=== PATIENT | female | born 1975 | race African-American/Black ===

== ENCOUNTER 2017-04-29 19:26 | Emergency (ER) | payer MEDICAID ==
[~2017-04-29] VITALS: Ht 152.4 cm; Wt 54.4 kg
[2017-04-29] MEDS ORDERED: UNOBMED (19:48)
[2017-04-29 19:52] VITALS: BP 113/71
--- NOTE | 2017-04-29 19:58 | Emergency Room Report ---
History of Present Illness General Chief Complaint: Skin Rash/Abscess Source: Patient Present Illness HPI 41 YO Female presents to the ED c/o pain, swelling, and erythema of Right hand since this am. multiple itchy insect bites to LE's, hand and face x 3 days, pt. reports hx of intermittent swollen itchy lesions x 1 year that her pmd rx'd hydrocortisone 2.5% cream for, however, pt. states she has never had increased temperature to palpation and as painful as the dorsum of her hand is today. patient denies past medical history otherwise she states she had workup for lupus and autoimmune dz which was unremarkable. denies N/V/F/C, denies IV drug use or hx of immune compromise. Denies new medications or body washes or creams. Denies swelling of the lips, tongue , throat or airway. Denies wheezing , or shortness of breath. Denies recent travel, recent illness or ill contacts. denies blisters, oral lesions, or sloughing of the skin. Denies CP, Palpitations, LOC, AMS, dizziness, Changes in Vision, Sensation, paresthesias, or a sudden severe headache. Allergies: Coded Allergies: No Known Allergies (Unverified , 04/29/17) Patient History Past Medical History: see triage record Past Surgical History: none Pertinent Family History: none Last Menstrual Period: 2 weeks ago Now: No Immunizations: UTD Reviewed Nursing Documentation: PMH: Agreed, PSxH: Agreed Nursing Documentation-PMH Past Medical History: No Stated History Review of Systems All Other Systems: negative except mentioned in HPI Physical Exam Vital Signs Date Time Temp Pulse Resp B/P (MAP) Pulse Ox O2 Delivery O2 Flow Rate FiO2 04/29/17 19:40 98.4 70 16 113/71 98 Room Air Sp02 EP Interpretation: reviewed, normal General Appearance: no apparent distress, alert, GCS 15, non-toxic Head: normocephalic, atraumatic Eyes: bilateral eye normal inspection, bilateral eye PERRL ENT: hearing grossly normal, normal pharynx, no angioedema, normal voice, other - no swelling of the lips or tongue Neck: full range of motion Respiratory: lungs clear, normal breath sounds, no wheezing, speaking full sentences Cardiovascular #1: regular rate, rhythm, normal capillary refill Musculoskeletal: back normal, gait/station normal, normal range of motion, tender - ttp to the dorsum of the right hand, erythema, swelling and increased temperature to palpation noted, pt. is NVI Neurologic: alert, oriented x3, responsive, motor strength/tone normal, sensory intact, speech normal Psychiatric: judgement/insight normal, memory normal, mood/affect normal Skin: normal color, warm/dry, well hydrated, other - multiple insect bites on the bilateral calves, UE, posterior neck and chin, lesion on the dorsum of the right hand with secondary cellulitis of the right hand- erythema, swelling, mild streaking up to the mid forearm, non-blanching. Medical Decision Making PA Attestation Dr. De La Paz is my supervising Physician whom patient management has been discussed with. Diagnostic Impression: Primary Impression: Cellulitis Qualified Codes: L03.90 - Cellulitis, unspecified Additional Impression: Insect bites Qualified Codes: W57.XXXA - Bitten or stung by nonvenomous insect and other nonvenomous arthropods, initial encounter ER Course 41 YO Female presents to the ED c/o pain, swelling, and erythema of Right hand since this am. multiple itchy insect bites to LE's, hand and face x 3 days, pt. reports hx of intermittent swollen itchy lesions x 1 year that her pmd rx'd hydrocortisone 2.5% cream for, however, pt. states she has never had increased temperature to palpation and as painful as the dorsum of her hand is today. patient denies past medical history otherwise she states she had workup for lupus and autoimmune dz which was unremarkable. denies N/V/F/C, denies IV drug use or hx of immune compromise. Denies new medications or body washes or creams. Denies swelling of the lips, tongue , throat or airway. Denies wheezing , or shortness of breath. Denies recent travel, recent illness or ill contacts. denies blisters, oral lesions, or sloughing of the skin. Denies CP, Palpitations, LOC, AMS, dizziness, Changes in Vision, Sensation, paresthesias, or a sudden severe headache. Ddx considered but are not limited to cellulitis, fracture, d/L, gout Vital signs: are WNL, pt. is afebrile H&PE are most consistent with multiple insect bites with secondary cellulitis of the right hand. ORDERS: none required at this time, the diagnosis is clinical ED INTERVENTIONS: - Motrin PO -Bactrim DS PO - Keflex PO I Gave pt. strict ED Return precautions, as mild streaking to the mid forearm noted, pt. is young and healthy otherwise I believe close outpatient treatment is most appropriate for this pt. d/w pt. to return immediately to ED with worsening of current symptoms, progression of erythema and swelling, or new symptoms. otherwise follow up closely with PMD. DISCHARGE: At this time pt. is stable for d/c to home. Will provide printed patient care instructions, and any necessary prescriptions. Care plan and follow up instructions have been discussed with the patient prior to discharge. Last Vital Signs Date Time Temp Pulse Resp B/P (MAP) Pulse Ox O2 Delivery O2 Flow Rate FiO2 04/29/17 19:40 98.4 70 16 113/71 98 Room Air Disposition: HOME, SELF-CARE Condition: Stable Scripts Diphenhydramine Hcl (BENADRYL ALLERGY) 25 Mg Tablet 25 MG PO Q6HR, #20 TAB Prov: Melia Mcmanus.A. 04/29/17 Ibuprofen* (MOTRIN*) 600 Mg Tablet 600 MG ORAL THREE TIMES A DAY, #30 TAB 0 Refills Prov: Melia Mcmanus P.A. 04/29/17 Cephalexin* (KEFLEX*) 500 Mg Capsule 500 MG ORAL EVERY 12 HOURS for 7 Days, #14 CAP 0 Refills Prov: Melia Mcmanus.A. 04/29/17 Trimethoprim/Sulfamethoxazole 160/800* (BACTRIM DS TABLET*) 1 Each Tablet 1 TAB ORAL TWICE A DAY for 7 Days, #14 TAB Prov: Melia Mcmanus 04/29/17 Departure Forms: Return to Work Return to Work Date: May 03, 2017 Work Restrictions: None Return to Full Activity: May 03, 2017 Patient Instructions: Cellulitis, Insect Bite, [id number] Additional Instructions: Take medications as directed. Follow up with a Primary Care Provider in 3 days, even if your symptoms have resolved. --Please review list of primary care clinics, if you do not already have a primary care provider Return sooner to ED if new symptoms occur, or current symptoms become worse. - Please note that this Emergency Department Report was dictated using [employer] assembler operator technology software, occasionally this can lead to erroneous entry secondary to interpretation by the dictation equipment. Melia Mcmanus Apr 29, 2017 19:58
[2017-04-29] MEDS ORDERED: Bactrim DS (160mg/800mg) tab ORAL ONE (20:15)
[2017-04-29] MEDS ORDERED: Cephalexin 500mg cap ORAL ONE (20:15)
[2017-04-29] MEDS ORDERED: BENADRYL ALLERG25 M1 PO (20:26)
[2017-04-29] MEDS ORDERED: IBUPROFEN600 MG ORAL (20:26)
[2017-04-29] MEDS ORDERED: BACTRIM DS TAB1 EAC1 ORAL (20:26)
[2017-04-29] MEDS ORDERED: CEPHALEXIN500 MG ORAL (20:26)
[2017-04-29 20:32] VITALS: BP 113/71
== END 2017-04-29 20:32 | disposition home or self-care (01) ==
LOC: EMR 19:56
DX: L03.113 Cellulitis of right upper limb (principal); S80.862A Insect bite (nonvenomous), left lower leg, initial encounter; S80.861A Insect bite (nonvenomous), right lower leg, initial encounter; S60.561A Insect bite (nonvenomous) of right hand, initial encounter; S10.96XA Insect bite of unspecified part of neck, initial encounter; S00.86XA Insect bite (nonvenomous) of other part of head, initial encounter; W57.XXXA Bitten or stung by nonvenomous insect and other nonvenomous arthropods, initial encounter; Y92.89 Other specified places as the place of occurrence of the external cause
CPT/HCPCS: 99284

== ENCOUNTER 2017-05-09 12:34 | Emergency (ER) | payer MEDICAID ==
[~2017-05-09] VITALS: Ht 152.4 cm; Wt 56.7 kg
[~2017-05-09 12:34] MED LIST: BACTRIM DS TAB1 EAC1 ORAL; BENADRYL ALLERG25 M1 PO; CEPHALEXIN500 MG ORAL; IBUPROFEN600 MG ORAL; UNOBMED
[2017-05-09] MEDS ORDERED: BACTRIM DS TAB1 EAC1 ORAL (13:10)
[2017-05-09] MEDS ORDERED: CEPHALEXIN500 MG ORAL (13:10)
[2017-05-09 13:15] VITALS: BP 104/49
[2017-05-09] MEDS ORDERED: Bactrim DS (160mg/800mg) tab ORAL ONE (13:15)
[2017-05-09] MEDS ORDERED: Cephalexin 500mg cap ORAL ONE (13:15)
--- NOTE | 2017-05-09 21:24 | Emergency Room Report ---
History of Present Illness General Chief Complaint: General Complaint Source: Patient Present Illness HPI The patient is a 41-year-old female presenting for possible skin infection. She states that she was seen in this emergency department one week prior and diagnosed with cellulitis. She was given prescription for Bactrim DS and states that he was working. She finished prescription yesterday and she noticed redness and pain in the same areas today. Pain is a 9/10 dull ache and worse with touch. She noticed the redness to the left arm and left leg. She denies any other symptoms including N, V, F, chills Allergies: Coded Allergies: No Known Allergies (Unverified , 04/29/17) Patient History Past Medical History: see triage record Pertinent Family History: none Last Menstrual Period: 04/23/17 Reviewed Nursing Documentation: PMH: Agreed, PSxH: Agreed Nursing Documentation-PMH Past Medical History: No Stated History Review of Systems All Other Systems: negative except mentioned in HPI Physical Exam Vital Signs Date Time Temp Pulse Resp B/P (MAP) Pulse Ox O2 Delivery O2 Flow Rate FiO2 05/09/17 12:49 99.0 80 17 104/49 98 Room Air Sp02 EP Interpretation: reviewed, normal General Appearance: no apparent distress, alert, GCS 15, non-toxic Head: normocephalic, atraumatic Eyes: bilateral eye normal inspection, bilateral eye PERRL Musculoskeletal: back normal, gait/station normal, normal range of motion Neurologic: alert, oriented x3, responsive, motor strength/tone normal, sensory intact, speech normal Psychiatric: judgement/insight normal, memory normal, mood/affect normal, no suicidal/homicidal ideation Skin: rash - Erythema to L arm tricep region and L leg anterior thigh. Hot to the touch. Tender. No fluctuance. No streaking Lymphatic: no adenopathy Medical Decision Making PA Attestation is my supervising physician. Patient management was discussed with my supervising physician Diagnostic Impression: Primary Impression: Cellulitis Qualified Codes: L03.90 - Cellulitis, unspecified ER Course The patient is a 41-year-old female presenting for possible skin infection. DDx considered but not limited to: cellulitis, abscess, lymphangitis, among others PE: afebrile. NAD Signs consistent with cellulitis of L arm and leg. No streaking. The patient to be discharged home with prescription for Keflex and Bactrim DS. She will follow up with primary doctor. She is given indications to return including increased redness, streaks, or fever Last Vital Signs Date Time Temp Pulse Resp B/P (MAP) Pulse Ox O2 Delivery O2 Flow Rate FiO2 05/09/17 13:15 99.0 17 104/49 98 Room Air 05/09/17 12:49 80 Status: improved Disposition: HOME, SELF-CARE Condition: Improved Scripts Trimethoprim/Sulfamethoxazole 160/800* (BACTRIM DS TABLET*) 1 Each Tablet 1 TAB ORAL TWICE A DAY, #20 TAB Prov: SHARAN DIAZ 05/09/17 Cephalexin* (KEFLEX*) 500 Mg Capsule 500 MG ORAL EVERY 12 HOURS, #20 CAP 0 Refills Prov: SHARAN DIAZ.A. 05/09/17 Referrals: NOT CHOSEN IPA/,REFERRING (PCP) Patient Instructions: Cellulitis Additional Instructions: I discussed my findings with the patient. All questions and concerns have been answered. Treatment and medication compliance have been addressed. I advised the patient that they need to follow up with PMD in 3-5 days. Return to ED if symptoms worsen, new symptoms arise such as fever or chills, or if needed for any reason. Return if symptoms worsen. Patient verbalized understanding of discharge instructions. SHARAN DIAZ May 09, 2017 21:24
== END 2017-05-09 13:15 | disposition home or self-care (01) ==
LOC: EMR 13:09
DX: L03.114 Cellulitis of left upper limb (principal); L03.116 Cellulitis of left lower limb
CPT/HCPCS: 99284

== ENCOUNTER 2017-06-02 12:18 | Emergency (ER) | payer MEDICAID ==
[~2017-06-02] VITALS: Ht 152.4 cm; Wt 54.4 kg
[2017-06-02] MEDS ORDERED: HYDROCORTISONE-30 GM TOPIC (12:45)
[2017-06-02] MEDS ORDERED: BENADRYL ALLERG25 M1 PO (12:45)
--- NOTE | 2017-06-02 12:52 | Emergency Room Report ---
History of Present Illness General Chief Complaint: Skin Rash/Abscess Source: Patient Present Illness HPI 41-year-old female no significant past medical history presenting with a rash to bilateral legs. Patient states that she has been intermittently getting this rash once every 3-4 months. It is itchy and slightly painful. States that one time she had a rash on her right arm and it became infected for chest take antibiotics. Currently denying any purulent drainage Allergies: Coded Allergies: No Known Allergies (Unverified , 04/29/17) Patient History Past Medical History: see triage record Past Surgical History: none Pertinent Family History: none Last Menstrual Period: 06/02/17 Now: No : 2 Para: 3 Reviewed Nursing Documentation: PMH: Agreed, PSxH: Agreed Nursing Documentation-PMH Past Medical History: No Stated History Review of Systems All Other Systems: negative except mentioned in HPI Physical Exam Vital Signs Date Time Temp Pulse Resp B/P (MAP) Pulse Ox O2 Delivery O2 Flow Rate FiO2 06/02/17 12:25 97.9 90 16 109/68 98 Room Air Sp02 EP Interpretation: reviewed, normal General Appearance: normal inspection, well appearing, no apparent distress, alert, GCS 15, non-toxic Head: normocephalic, atraumatic Eyes: bilateral eye normal inspection, bilateral eye PERRL, bilateral eye EOMI ENT: normal ENT inspection, normal pharynx, normal voice, moist mucus membranes Neck: normal inspection, full range of motion, supple Respiratory: normal inspection, lungs clear, normal breath sounds, no respiratory distress, no retraction, no wheezing, speaking full sentences, chest symmetrical Cardiovascular #1: normal inspection, regular rate, rhythm, no edema, normal capillary refill Cardiovascular #2: 2+ radial (R), 2+ radial (L) Gastrointestinal: normal inspection, non tender, soft, non-distended, no guarding Musculoskeletal: normal inspection, back normal, normal range of motion, non- tender Neurologic: normal inspection, alert, oriented x3, responsive, motor strength/ tone normal, sensory intact, normal gait, speech normal Psychiatric: normal inspection, judgement/insight normal, memory normal Skin: no rash, warm/dry, well hydrated, normal turgor, other - 3 2 x 2 centimeter insect bites right lower extremity one on the left lower extremity. Slightly tender. No fluctuance. No purulent drainage. No overlying cellulitis Medical Decision Making Diagnostic Impression: Primary Impression: Insect bites ER Course 41-year-old female with a rash to legs DDX: Appears to be insect bites, not infected Plan: Benadryl and hydrocortisone cream Disposition: Patient is to be discharged to home on Benadryl and hydrocortisone cream. Strict precautions discussed with patients on when to return to the ED including fevers, chills, rapid spread of rash, persistent rash, extreme pain to extremity, which may indicate severe illness. Patient verbalizes understanding. Patient is instructed to follow up with primary care doctor OR come back to the ED in 48 hours for wound check. Patient agrees with plan. Please note that this Emergency Department Report was dictated using [employer] expert technology software, occasionally this can lead to erroneous entry secondary to interpretation by the dictation equipment. Last Vital Signs Date Time Temp Pulse Resp B/P (MAP) Pulse Ox O2 Delivery O2 Flow Rate FiO2 06/02/17 12:25 97.9 90 16 109/68 98 Room Air Disposition: HOME, SELF-CARE Condition: Stable Scripts Diphenhydramine Hcl (BENADRYL ALLERGY) 25 Mg Tablet 25 MG PO Q6H Y for itc for 5 Days, #20 TAB 0 Refills Prov: Krista Boswell M.D. 06/02/17 Hydrocortisone/Aloe Vera 1%* (HYDROCORTISONE-ALOE 1% CREAM*) Y Cr 1 APPLIC TOPIC Q6H Y for Itching for 7 Days, #30 GM 0 Refills Prov: Krista Boswell M.D. 06/02/17 Patient Instructions: Insect Bite Additional Instructions: Please followup with your doctor in one week Krista Boswell M.D. Jun 02, 2017 12:52
[2017-06-02 12:55] VITALS: BP 109/68
== END 2017-06-02 12:55 | disposition home or self-care (01) ==
LOC: EMR 12:37
DX: S80.862A Insect bite (nonvenomous), left lower leg, initial encounter (principal); S80.861A Insect bite (nonvenomous), right lower leg, initial encounter; W57.XXXA Bitten or stung by nonvenomous insect and other nonvenomous arthropods, initial encounter; Y92.89 Other specified places as the place of occurrence of the external cause
CPT/HCPCS: 99283

== ENCOUNTER 2020-08-25 11:03 | Emergency (ER) | payer SELFPAY ==
[~2020-08-25] VITALS: Ht 152.4 cm; Wt 60.3 kg
[~2020-08-25 11:03] MED LIST changes: +HYDROCORTISONE-30 GM TOPIC
[2020-08-25 11:18] VITALS: BP 128/76
[2020-08-25] MEDS ORDERED: Morphine Sulfate 4mg/ml Inj (IV USE ONLY) IVP ONE (11:45)
[2020-08-25] MEDS ORDERED: Dicyclomine HCl 10mg/5ml oral soln ORAL ONE (11:45)
[2020-08-25 11:59] LABS: APPEARANCE,URINE CLEAR; BILIRUBIN, URINE NEGATIVE (NEGATIVE); COLOR,URINE PALE YELLOW; GLUCOSE, URINE (UA) NEGATIVE (NEGATIVE); KETONES,URINE NEGATIVE (NEGATIVE); LEUKOCYTE ESTERASE ,URINE NEGATIVE (NEGATIVE); NITRITE,URINE NEGATIVE (NEGATIVE); PH,URINE 6.5 (4.5-8.0); PROTEIN,URINE NEGATIVE (NEGATIVE); UROBILINOGEN,URINE NORMAL MG/DL (0.0-1.0)
--- NOTE | 2020-08-25 12:02 | NUR ---
ED Nurse Note: MARK CARBAJAL-DAUGHTER
[2020-08-25 13:05] LABS: EOSINOPHILS % (AUTO) 2.3 % (0.0-3.0); HEMATOCRIT 41.1 % (37.0-47.0); HEMOGLOBIN 13.7 G/DL (12.0-16.0); LYMPHOCYTES % (AUTO) 34.1 % (20.0-45.0); MEAN CORPUSCULAR VOLUME 96 FL (80-99); NEUTROPHILS % (AUTO) 56.8 % (45.0-75.0); PLATELET COUNT 204 K/UL (150-450); RED BLOOD COUNT 4.28 M/UL (4.20-5.40); RED CELL DISTRIBUTION WIDTH 11.7 % (11.6-14.8); WHITE BLOOD COUNT 7.7 K/UL (4.8-10.8)
[2020-08-25 13:11] LABS: ANION GAP 7 mmol/L (5-15); BLOOD UREA NITROGEN 16 mg/dL (7-18); CALCIUM 9.6 MG/DL (8.5-10.1); CARBON DIOXIDE 29 MMOL/L (21-32); CHLORIDE 105 MMOL/L (98-107); CREATININE 0.9 MG/DL (0.55-1.30); POTASSIUM 4.3 MMOL/L (3.5-5.1); SODIUM 141 MMOL/L (136-145)
[2020-08-25 13:15] LABS: ALANINE AMINOTRANSFERASE 39 U/L (12-78); ALKALINE PHOSPHATASE 76 U/L (46-116); ASPARTATE AMINO TRANSFERASE 23 U/L (15-37); BILIRUBIN,TOTAL 0.7 MG/DL (0.2-1.0)
--- NOTE | 2020-08-25 13:23 | Diagnostic Imaging Report ---
EXAM: XR Chest, 1 View CLINICAL HISTORY: Shortness of breath TECHNIQUE: Frontal view of the chest. COMPARISON: No relevant prior studies available. FINDINGS: Lungs: Unremarkable. The lungs appear clear. No focal consolidation. Pleural space: Unremarkable. The costophrenic angles are sharp. No visible pneumothorax. Heart: Unremarkable. No cardiomegaly. Mediastinum: Unremarkable. Bones/joints: Unremarkable. IMPRESSION: Unremarkable chest x-ray.
[2020-08-25] MEDS ORDERED: CYCLOBENZAPRINE10 MG ORAL (13:30)
[2020-08-25] MEDS ORDERED: OMEPRAZOLE20 M2 ORAL (13:30)
[2020-08-25 13:40] VITALS: BP 122/70
--- NOTE | 2020-08-25 13:40 | NUR ---
ER DISCHARGE NOTE: Patient was seen today for lower gback pain. Patient is cleared to be discharged per ERMD, pt is aox4, on room air, with stable vital signs. pt was given dc and prescription instructions, pt was able to verbalize understanding, pt id band and iv site removed without complications. pt is able to ambulate with steady gait. pt took all belongings.
--- NOTE | 2020-08-27 14:03 | Emergency Room Report ---
History of Present Illness General Chief Complaint: Back Pain-No Injury Source: Patient Present Illness HPI Patient is a 45-year-old female presents for increased mid back pain. Patient onset of symptoms 1 day following episode of drinking alcohol. She denies any hematemesis or bloody stools. Denies any current abdominal pain. Denies recent trauma. Denies any fever. Pain is worse with movement. Denies any lower extremity discomfort or numbness. Had been able to urinate normally. Allergies: Coded Allergies: No Known Allergies (Unverified , 04/29/17) COVID-19 Screening Contact w/high risk pt: No Experienced COVID-19 symptoms?: No COVID-19 Testing performed BUSINESS CONSULT: No Patient History Past Medical History: see triage record Last Menstrual Period: nov Now: No Reviewed Nursing Documentation: PMH: Agreed; PSxH: Agreed Nursing Documentation-PMH Past Medical History: No Stated History Review of Systems All Other Systems: negative except mentioned in HPI Physical Exam Vital Signs Date Time Temp Pulse Resp B/P (MAP) Pulse Ox O2 Delivery O2 Flow Rate FiO2 08/25/20 11:18 98.4 70 18 128/76 97 Room Air Sp02 EP Interpretation: reviewed, normal General Appearance: normal inspection, well appearing, no apparent distress, alert, GCS 15, non-toxic Head: normocephalic, atraumatic ENT: normal ENT inspection, hearing grossly normal, normal voice Neck: normal inspection, full range of motion, supple, no bony tend Respiratory: normal inspection, lungs clear, normal breath sounds, no respiratory distress, no retraction, no wheezing Cardiovascular #1: regular rate, rhythm, no edema Gastrointestinal: normal inspection, normal bowel sounds, non tender, soft, no guarding, no hernia Genitourinary: no CVA tenderness Musculoskeletal: normal inspection, back normal, normal range of motion Neurologic: alert, motor strength/tone normal, resident caregiver III-XII nml as tested, oriented x3, responsive, speech normal, normal inspection Psychiatric: normal inspection, judgement/insight normal, mood/affect normal Skin: no rash Medical Decision Making Diagnostic Impression: Primary Impression: Back pain Additional Impression: Gallstones ER Course Patient presented for back pain. Differential diagnosis includes not limited to gastritis, pancreatitis, sciatica, muscular pain among others. Laboratory testing was ordered due to patient's history of symptom onset after alcohol intake. Patient was given IV pain medications as well as IV fluids. She reported having improvement in her symptoms. Patient was advised alcohol lauryn sation. She is advised to follow-up with her primary care physician for further evaluation of gallstones seen on bedside ultrasound. Laboratory testing showed a normal lipase as well as normal blood counts. The patient is advised to follow up with primary care doctor in 1-2 days. Patient is advised to return if any worsening condition or if any changes in status that are concerning. This report is dictated with [employer] weight loss counselor software which may occasionally lead to discrepancies related to use of this software. Labs Test 08/25/20 11:26 08/25/20 12:08 Urine Color Pale yellow Urine Appearance Clear Urine pH 6.5 (4.5-8.0) Urine Specific [place] 1.010 (1.005-1.035) Urine Protein Negative (NEGATIVE) Urine Glucose (UA) Negative (NEGATIVE) Urine Ketones Negative (NEGATIVE) Urine Blood 1+ (NEGATIVE) Urine Nitrite Negative (NEGATIVE) Urine Bilirubin Negative (NEGATIVE) Urine Urobilinogen Normal MG/DL (0.0-1.0) Urine Leukocyte Esterase Negative (NEGATIVE) Urine RBC 0-2 /HPF (0 - 2) Urine WBC 0-2 /HPF (0 - 2) Urine Squamous Epithelial Cells Few /LPF (NONE/OCC) Urine Bacteria Occasional /HPF (NONE) Urine HCG, Qualitative Negative (NEGATIVE) White Blood Count 7.7 K/UL (4.8-10.8) Red Blood Count 4.28 M/UL (4.20-5.40) Hemoglobin 13.7 G/DL (12.0-16.0) Hematocrit 41.1 % (37.0-47.0) Mean Corpuscular Volume 96 FL (80-99) Mean Corpuscular Hemoglobin 32.0 PG (27.0-31.0) Mean Corpuscular Hemoglobin Concent 33.3 G/DL (32.0-36.0) Red Cell Distribution Width 11.7 % (11.6-14.8) Platelet Count 204 K/UL (150-450) Mean Platelet Volume 9.0 FL (6.5-10.1) Neutrophils (%) (Auto) 56.8 % (45.0-75.0) Lymphocytes (%) (Auto) 34.1 % (20.0-45.0) Monocytes (%) (Auto) 5.0 % (1.0-10.0) Eosinophils (%) (Auto) 2.3 % (0.0-3.0) Basophils (%) (Auto) 2.0 % (0.0-2.0) Prothrombin Time 10.7 SEC (9.30-11.50) Prothromb Time International Ratio 1.0 (0.9-1.1) Activated Partial Thromboplast Time 26 SEC (23-33) Sodium Level 141 MMOL/L (136-145) Potassium Level 4.3 MMOL/L (3.5-5.1) Chloride Level 105 MMOL/L (98-107) Carbon Dioxide Level 29 MMOL/L (21-32) Anion Gap 7 mmol/L (5-15) Blood Urea Nitrogen 16 mg/dL (7-18) Creatinine 0.9 MG/DL (0.55-1.30) Estimat Glomerular Filtration Rate > 60 mL/min (>60) Glucose Level 89 MG/DL (74-106) Calcium Level 9.6 MG/DL (8.5-10.1) Total Bilirubin 0.7 MG/DL (0.2-1.0) Aspartate Amino Transf (AST/SGOT) 23 U/L (15-37) Alanine Aminotransferase (ALT/SGPT) 39 U/L (12-78) Alkaline Phosphatase 76 U/L (46-116) Total Protein 8.0 G/DL (6.4-8.2) Albumin 4.0 G/DL (3.4-5.0) Globulin 4.0 g/dL Albumin/Globulin Ratio 1.0 (1.0-2.7) Lipase 185 U/L (73-393) Last Vital Signs Date Time Temp Pulse Resp B/P (MAP) Pulse Ox O2 Delivery O2 Flow Rate FiO2 08/25/20 13:40 97.9 87 16 122/70 99 Room Air Status: improved Disposition: HOME, SELF-CARE Condition: Stable Scripts Cyclobenzaprine Hcl* (FLEXERIL*) 10 Mg Tablet 10 MG ORAL THREE TIMES A DAY, #20 TAB Prov: Addison Sky MD 08/25/20 Omeprazole (OMEPRAZOLE) 20 Mg Capsule.dr 20 MG ORAL DAILY for Gerd, #30 CAP Prov: Addison Sky MD 08/25/20 Referrals: NOT CHOSEN [facility]/MD,REFERRING (PCP) Patient Instructions: Back Pain, Adult Additional Instructions: Follow up with your doctor for recheck. Return if worse. Addison Sky MD Aug 27, 2020 14:03
== END 2020-08-25 13:40 | disposition home or self-care (01) ==
LOC: EMR 12:23
DX: M54.9 Dorsalgia, unspecified (principal); K80.20 Calculus of gallbladder without cholecystitis without obstruction
CPT/HCPCS: 36415; 71045; 80053; 81003; 81025; 83690; 85025; 85610; 85730; 96374; 96375; 99284; J2270; J2405